=== PATIENT | female | born 1930 | race Caucasian/White ===

== ENCOUNTER 2017-08-02 13:00 | Inpatient (IN) | payer MEDICARE, BC ==
--- NOTE | 2017-08-02 13:28 | EDM.PDOC ---
ED HPI GENERAL MEDICAL PROBLEM - General Stated Complaint: POSSIBLE STROKE Time Seen by Provider: 08/02/17 13:01 Source of Information: Reports: Patient, Family History Limitations: Reports: No Limitations - History of Present Illness INITIAL COMMENTS - FREE TEXT/NARRATIVE: 87 y.o.w.f with H/O A fib, HTN, came to the ed with her family, walking. Pt lives by herself. She called her daughter at about noon, something is not " right with her left face". On arrival her blood pressure was 230/103. Pt stated she has no pain. Her left face was drooping, her MS was 5/5 throughout and she was able to elevate all her extremities for 10 sec. EOMI. Was not able to whistle. Pt was Ox4 BP 230/84 Pulse 51 Temp 98.0 RR 20, O2 sat 97% Onset: Today Onset Date: 08/02/17 Onset Time: 10:00 Duration: Hour(s): Location: Reports: Face (left face) Severity: Moderate Improves with: Reports: None Worsens with: Reports: None Context: Reports: Other (HTN) Associated Symptoms: Reports: Headaches - Related Data Allergies Allergy/AdvReac Type Severity Reaction Status Date / Time Sulfa (Sulfonamide Allergy Nausea and Verified 08/02/17 14:30 Antibiotics) Vomiting Home Meds: Home Meds Digoxin [Lanoxin] 125 mcg PO DAILY 08/02/17 [History] Enalapril [Vasotec] 20 mg PO DAILY 08/02/17 [History] Furosemide [Lasix] 80 mg PO DAILY 08/02/17 [History] Metoprolol Succinate 50 mg PO DAILY 08/02/17 [History] Valsartan 160 mg PO DAILY 08/02/17 [History] Warfarin [Coumadin] 3 mg PO DAILY 08/02/17 [History] metFORMIN [Glucophage] 250 mg PO WITHBREAKFAST 08/02/17 [History] Calcium Carbonate [Calcium] 600 mg PO DAILY 08/03/17 [History] Multivitamin [Daily Cory] 1 tab PO DAILY 08/03/17 [History] Potassium Chloride [Klor-Con 8] 16 meq PO BID 08/03/17 [History] Social & Family History - Tobacco Use Second Hand Smoke Exposure: Yes - Alcohol Use Days Per Week of Alcohol Use: 0 - Recreational Drug Use Recreational Drug Use: No ED ROS GENERAL - Review of Systems Review Of Systems: See Below Constitutional: Reports: No Symptoms HEENT: Reports: No Symptoms, Other (left facial droop) Respiratory: Reports: No Symptoms Cardiovascular: Reports: No Symptoms Endocrine: Reports: No Symptoms GI/Abdominal: Reports: No Symptoms : Reports: No Symptoms Musculoskeletal: Reports: No Symptoms Skin: Reports: No Symptoms Neurological: Reports: Numbness (with droop of left face) Psychiatric: Reports: No Symptoms Hematologic/Lymphatic: Reports: No Symptoms Immunologic: Reports: No Symptoms ED EXAM, NEURO - Physical Exam Exam: See Below Exam Limited By: No Limitations General Appearance: Alert, WD/WN, No Apparent Distress Eye Exam: Left Eye: Proptosis (left facial droop) Ears: Normal External Exam Nose: Normal Inspection Throat/Mouth: Normal Lips, No Airway Compromise Head Exam: Atraumatic, Other (left facial droop) Neck: Normal Inspection, Supple, Non-Tender, Full Range of Motion Respiratory/Chest: No Respiratory Distress, Lungs Clear, Normal Breath Sounds Cardiovascular: No Edema, No JVD, No Murmur, No Rub, Bradycardia, Irregularly Irregular GI/Abdominal: Normal Bowel Sounds, Soft, Non-Tender, No Organomegaly, No Distention, No Abnormal Bruit, No Mass (Female) Exam: Deferred Rectal (Female) Exam: Deferred Neurological: Alert, Normal Mood/Affect, Normal Dorsiflexion, Normal Plantar Flexion, Normal Gait, Oriented x 3, Other (left facial droop) Back Exam: Normal Inspection, Full Range of Motion Extremities: Normal Inspection, Normal Range of Motion, Non-Tender, No Pedal Edema Psychiatric: Normal Affect, Normal Mood Skin Exam: Warm, Dry, Intact, Normal Color, No Rash EKG INTERPRETATION EKG Date: 08/02/17 Time: 13:15 Rhythm: A-Fib Rate (Beats/Min): 46 [place]: LAD-Left [place] Deviation P-Wave: Absent QRS: Normal ST-T: Normal QT: Normal Comparison: NA - No Prior EKG Course - Vital Signs Text/Narrative:: 87 y.o.w.f with H/O A fib, HTN, came to the ed with her family, walking. Pt lives by herself. She called her daughter at about noon, something is not " right with her left face". On arrival her blood pressure was 230/103. Pt stated she has no pain. Her left face was drooping, her MS was 5/5 throughout and she was able to elevate all her extremities for 10 sec. EOMI. Was not able to whistle. Pt was Ox4 BP 230/84 Pulse 51 Temp 98.0 RR 20, O2 sat 97% PE: Left facial droop. Ox3 HTN urgency Labs: UA pos for UTI CBC nl Cr. 1.0 BUN 34 GFR 58 Imaging: CT head: NAD MRI was ordered by Dr. Griffith, admitting Physician Impression: left sided Molina's palsy, HTN urgency, UTI, A Fib with SVR DDX: CVA Tx: Hydralazine, Levoquine 500 mg I.V 2.24 pm Consultation: Dr. Griffith, [facility]: Will see pt in the ed and oder HTN meds and took over the care. Plan: Admit to ICU. Dr. Huddleston wrote the admitting orders. Last Recorded V/S: Last Vital Signs Temp 36.4 C 08/06/17 03:05 Pulse 48 L 08/06/17 03:05 Resp 18 08/06/17 03:05 BP 156/79 H 08/06/17 03:05 Pulse Ox 95 08/06/17 03:05 - Orders/Labs/Meds Orders: Medication Orders Acetaminophen (Tylenol) 650 mg PO Q4H PRN PRN Reason: Pain (Mild 1-3)/fever Amlodipine Besylate (Norvasc) 10 mg PO DAILY CHARLIE Last Admin: 08/05/17 09:20 Dose: 10 mg Admin: 08/04/17 10:21 Dose: 10 mg Admin: 08/03/17 08:53 Dose: 10 mg Artificial Tears (Refresh Tears 0.5%) 0 ml EYELF Q1H PRN PRN Reason: LID LAG Last Admin: 08/05/17 20:20 Dose: 1 drop Admin: 08/05/17 09:21 Dose: 1 drop Admin: 08/04/17 17:10 Dose: 1 drop Admin: 08/04/17 15:30 Dose: 1 drop Admin: 08/04/17 13:30 Dose: 1 drop Admin: 08/04/17 10:27 Dose: 1 drop Admin: 08/04/17 03:30 Dose: 1 drop Admin: 08/04/17 01:05 Dose: 1 drop Admin: 08/03/17 22:00 Dose: 1 drop Admin: 08/03/17 17:41 Dose: 1 drop Admin: 08/03/17 15:06 Dose: 1 drop Admin: 08/03/17 09:50 Dose: 1 drop Docusate Sodium (Colace) 100 mg PO BID PRN PRN Reason: Constipation Last Admin: 08/03/17 14:32 Dose: 100 mg Furosemide (Lasix) 80 mg PO DAILY [facility] Last Admin: 08/05/17 09:19 Dose: 80 mg Admin: 08/04/17 10:21 Dose: 80 mg Admin: 08/03/17 08:27 Dose: 80 mg Metformin HCl (Glucophage) 250 mg PO WITHBREAKFAST [facility] Last Admin: 08/05/17 09:18 Dose: 250 mg Admin: 08/04/17 08:26 Dose: 250 mg Admin: 08/03/17 08:27 Dose: 250 mg Metoprolol Tartrate (Lopressor) 50 mg PO BID [facility] Last Admin: 08/05/17 20:23 Dose: 50 mg Polyethylene Glycol (Miralax) 17 gm PO DAILY [facility] Last Admin: 08/05/17 09:19 Dose: 17 gm Admin: 08/04/17 10:30 Dose: 17 gm Admin: 08/03/17 21:00 Dose: 17 gm Potassium Chloride (Klor-Con 8) 16 meq PO BID [facility] Last Admin: 08/05/17 20:20 Dose: 16 meq Admin: 08/05/17 09:19 Dose: 16 meq Admin: 08/04/17 21:01 Dose: 16 meq Admin: 08/04/17 10:20 Dose: 16 meq Admin: 08/03/17 21:00 Dose: 16 meq Prednisone (Prednisone) 60 mg PO WITHBREAKFAST [facility] Last Admin: 08/05/17 09:18 Dose: 60 mg Admin: 08/04/17 08:27 Dose: 60 mg Admin: 08/03/17 08:51 Dose: 60 mg Admin: 08/02/17 18:44 Dose: 60 mg Sodium Chloride (Saline Flush) 10 ml FLUSH ASDIRECTED PRN PRN Reason: Keep Vein Open Last Admin: 08/03/17 13:03 Dose: 10 ml Admin: 08/03/17 09:50 Dose: 10 ml Valacyclovir HCl (Valtrex) 1,000 mg PO BID [facility] Stop: 08/09/17 09:01 Last Admin: 08/05/17 20:20 Dose: 1,000 mg Admin: 08/05/17 09:20 Dose: 1,000 mg Admin: 08/04/17 21:01 Dose: 1,000 mg Admin: 08/04/17 10:21 Dose: 1,000 mg Admin: 08/03/17 21:00 Dose: 1,000 mg Admin: 08/03/17 08:53 Dose: 1,000 mg Valsartan (Diovan) 160 mg PO DAILY [facility] Last Admin: 08/05/17 09:19 Dose: 160 mg Admin: 08/04/17 10:20 Dose: 160 mg Admin: 08/03/17 08:52 Dose: 160 mg Warfarin Sodium (Coumadin) 3 mg PO 1600 [facility] Last Admin: 08/03/17 17:23 Dose: 3 mg Admin: 08/02/17 17:04 Dose: 3 mg Warfarin Sodium (Coumadin Sliding Scale) 1 each PO ASDIRECTED [facility] Labs: Laboratory Tests 08/02/17 08/02/17 08/02/17 Range/Units 13:25 13:25 13:25 WBC 6.7 (4.5-12.0) X10-3/uL RBC 4.85 (3.23-5.20) x10(6)uL Hgb 14.9 (11.5-15.5) g/dL Hct 45.1 (30.0-51.3) % MCV 93.0 (80-96) fL MCH 30.8 (27.7-33.6) pg MCHC 33.1 (32.2-35.4) g/dL RDW 14.4 (11.5-15.5) % Plt Count 234 (125-369) X10(3)uL MPV 8.9 (7.4-10.4) fL Add Manual Diff Yes Neutrophils % (Manual) 78 (46-82) % Lymphocytes % (Manual) 16 (13-37) % Monocytes % (Manual) 5 (4-12) % Eosinophils % (Manual) 1 (0-5) % PT 23.8 H (8.7-11.1) INR 2.32 H (0.89-1.13) Sodium 144 (135-145) mmol/L Potassium 3.8 (3.5-5.3) mmol/L Chloride 105 (100-110) mmol/L Carbon Dioxide 31 (21-32) mmol/L BUN 24 H (7-18) mg/dL Creatinine 1.0 (0.55-1.02) mg/dL Est Cr Clr Drug Dosing TNP Estimated GFR (MDRD) 53 L (>60) BUN/Creatinine Ratio 24.0 H (9-20) Glucose 180 H (80-116) mg/dL Calcium 9.1 (8.6-10.2) mg/dL Creatine Kinase (60-160) IU/L Troponin I (<0.017-0.056) ng/mL Urine Color (YELLOW) Urine Appearance (CLEAR) Urine pH (5.0-6.5) Ur Specific [place] (1.010-1.025) Urine Protein (NEGATIVE) mg/dL Urine Glucose (UA) (NEGATIVE) mg/dL Urine Ketones (NEGATIVE) mg/dL Urine Occult Blood (NEGATIVE) Urine Nitrite (NEGATIVE) Urine Bilirubin (NEGATIVE) Urine Urobilinogen (NEGATIVE) mg/dL Ur Leukocyte Esterase (NEGATIVE) Urine RBC (0) Urine WBC (0) Ur Squamous Epith Cells (NS,R,O) Urine Bacteria (NS) Digoxin (0.8-2.0) ng/mL 08/02/17 08/02/17 08/02/17 Range/Units 13:25 13:25 13:25 WBC (4.5-12.0) X10-3/uL RBC (3.23-5.20) x10(6)uL Hgb (11.5-15.5) g/dL Hct (30.0-51.3) % MCV (80-96) fL MCH (27.7-33.6) pg MCHC (32.2-35.4) g/dL RDW (11.5-15.5) % Plt Count (125-369) X10(3)uL MPV (7.4-10.4) fL Add Manual Diff Neutrophils % (Manual) (46-82) % Lymphocytes % (Manual) (13-37) % Monocytes % (Manual) (4-12) % Eosinophils % (Manual) (0-5) % PT (8.7-11.1) INR (0.89-1.13) Sodium (135-145) mmol/L Potassium (3.5-5.3) mmol/L Chloride (100-110) mmol/L Carbon Dioxide (21-32) mmol/L BUN (7-18) mg/dL Creatinine (0.55-1.02) mg/dL Est Cr Clr Drug Dosing Estimated GFR (MDRD) (>60) BUN/Creatinine Ratio (9-20) Glucose (80-116) mg/dL Calcium (8.6-10.2) mg/dL Creatine Kinase 42 L (60-160) IU/L Troponin I < 0.017 L (<0.017-0.056) ng/mL Urine Color (YELLOW) Urine Appearance (CLEAR) Urine pH (5.0-6.5) Ur Specific [place] (1.010-1.025) Urine Protein (NEGATIVE) mg/dL Urine Glucose (UA) (NEGATIVE) mg/dL Urine Ketones (NEGATIVE) mg/dL Urine Occult Blood (NEGATIVE) Urine Nitrite (NEGATIVE) Urine Bilirubin (NEGATIVE) Urine Urobilinogen (NEGATIVE) mg/dL Ur Leukocyte Esterase (NEGATIVE) Urine RBC (0) Urine WBC (0) Ur Squamous Epith Cells (NS,R,O) Urine Bacteria (NS) Digoxin 1.4 (0.8-2.0) ng/mL 08/02/17 Range/Units 14:05 WBC (4.5-12.0) X10-3/uL RBC (3.23-5.20) x10(6)uL Hgb (11.5-15.5) g/dL Hct (30.0-51.3) % MCV (80-96) fL MCH (27.7-33.6) pg MCHC (32.2-35.4) g/dL RDW (11.5-15.5) % Plt Count (125-369) X10(3)uL MPV (7.4-10.4) fL Add Manual Diff Neutrophils % (Manual) (46-82) % Lymphocytes % (Manual) (13-37) % Monocytes % (Manual) (4-12) % Eosinophils % (Manual) (0-5) % PT (8.7-11.1) INR (0.89-1.13) Sodium (135-145) mmol/L Potassium (3.5-5.3) mmol/L Chloride (100-110) mmol/L Carbon Dioxide (21-32) mmol/L BUN (7-18) mg/dL Creatinine (0.55-1.02) mg/dL Est Cr Clr Drug Dosing Estimated GFR (MDRD) (>60) BUN/Creatinine Ratio (9-20) Glucose (80-116) mg/dL Calcium (8.6-10.2) mg/dL Creatine Kinase (60-160) IU/L Troponin I (<0.017-0.056) ng/mL Urine Color Yellow (YELLOW) Urine Appearance Cloudy (CLEAR) Urine pH 7.0 H (5.0-6.5) Ur Specific [place] 1.010 (1.010-1.025) Urine Protein 30 H (NEGATIVE) mg/dL Urine Glucose (UA) Normal (NEGATIVE) mg/dL Urine Ketones Negative (NEGATIVE) mg/dL Urine Occult Blood Large H (NEGATIVE) Urine Nitrite Positive H (NEGATIVE) Urine Bilirubin Negative (NEGATIVE) Urine Urobilinogen Normal (NEGATIVE) mg/dL Ur Leukocyte Esterase Negative (NEGATIVE) Urine RBC 20-30 H (0) Urine WBC 5-10 (0) Ur Squamous Epith Cells Moderate H (NS,R,O) Urine Bacteria Many H (NS) Digoxin (0.8-2.0) ng/mL Meds: Medications Generic Name Dose Route Start Last Admin Trade Name Freq PRN Reason Stop Dose Admin Acetaminophen 650 mg 08/02/17 14:54 Tylenol PO Q4H PRN Pain (Mild 1-3)/fever Amlodipine Besylate 10 mg 08/03/17 09:00 08/05/17 09:20 Norvasc PO 10 mg DAILY CHARLIE Administration Artificial Tears 0 ml 08/03/17 08:47 08/05/17 20:20 Refresh Tears 0.5% EYELF 1 drop Q1H PRN Administration LID LAG Docusate Sodium 100 mg 08/02/17 14:54 08/03/17 14:32 Colace PO 100 mg BID PRN Administration Constipation Furosemide 80 mg 08/03/17 09:00 08/05/17 09:19 Lasix PO 80 mg DAILY CHARLIE Administration Metformin HCl 250 mg 08/03/17 08:00 08/05/17 09:18 Glucophage PO 250 mg WITHBREAKFAST CHARLIE Administration Metoprolol Tartrate 50 mg 08/05/17 21:00 08/05/17 20:23 Lopressor PO 50 mg BID CHARLIE Administration Polyethylene Glycol 17 gm 08/03/17 19:30 08/05/17 09:19 Miralax PO 17 gm DAILY CHARLIE Administration Potassium Chloride 16 meq 08/03/17 21:00 08/05/17 20:20 Klor-Con 8 PO 16 meq BID CHARLIE Administration Prednisone 60 mg 08/02/17 17:45 08/05/17 09:18 Prednisone PO 60 mg WITHBREAKFAST CHARLIE Administration Sodium Chloride 10 ml 08/02/17 14:54 08/03/17 13:03 Saline Flush FLUSH 10 ml ASDIRECTED PRN Administration Keep Vein Open Valacyclovir HCl 1,000 mg 08/03/17 09:00 08/05/17 20:20 Valtrex PO 08/09/17 09:01 1,000 mg BID CHARLIE Administration Valsartan 160 mg 08/03/17 09:00 08/05/17 09:19 Diovan PO 160 mg DAILY CHARLIE Administration Warfarin Sodium 3 mg 08/02/17 17:00 08/03/17 17:23 Coumadin PO 3 mg 1600 CHARLIE Administration Warfarin Sodium 1 each 08/02/17 16:45 Coumadin Sliding Scale PO ASDIRECTED CHARLIE Discontinued Medications Generic Name Dose Route Start Last Admin Trade Name Freq PRN Reason Stop Dose Admin Artificial Tears 1 each 08/02/17 17:28 08/02/17 21:07 Refresh Plus 0.5% EYELF 1 drop ASDIRECTED PRN Administration lid lag Digoxin 125 mcg 08/03/17 09:00 Lanoxin PO DAILY [facility] Digoxin 62.5 mcg 08/03/17 09:00 Lanoxin PO DAILY [facility] Enalapril Maleate 20 mg 08/03/17 09:00 Vasotec PO DAILY [facility] Gadoteridol 20 ml 08/02/17 15:30 08/02/17 16:00 Prohance IV 15 ml . DIRECTED CHARLIE Administration Hydralazine HCl 5 mg 08/02/17 13:36 08/02/17 13:50 Apresoline IVPUSH 08/02/17 13:37 5 mg ONETIME STA Administration Hydralazine HCl 10 mg 08/02/17 14:36 08/02/17 16:09 Apresoline IVPUSH 08/02/17 14:37 Not Given ONETIME ONE Nitroglycerin/Dextrose Confirm 08/02/17 14:28 08/02/17 14:45 Nitroglycerin 25 Mg/D5w 250 Ml Administered 08/02/17 14:29 Not Given Dose 25 mg in 250 mls @ as directed .ROUTE .STK-MED ONE Nitroglycerin/Dextrose 25 mg in 250 mls @ 3 mls/hr 08/02/17 16:30 08/03/17 08 :22 Nitroglycerin 25 Mg/D5w 250 Ml IV 0 mcg/min TITRATE CHARLIE 0 mls/hr Protocol Titration 5 MCG/MIN Sodium Chloride 1,000 mls @ 0 mls/hr 08/02/17 17:00 08/02/17 16:53 Normal Saline IV 08/06/17 16:57 30 mls/hr ASDIRECTED CHARLIE Administration KVO Labetalol HCl 20 mg 08/03/17 08:30 08/04/17 11:28 Normodyne IVPUSH Not Given Q4H [facility] Protocol Metoprolol Succinate 25 mg 08/03/17 09:00 Toprol Xl PO DAILY CHARLIE Metoprolol Tartrate 100 mg 08/04/17 08:45 08/04/17 21:01 Lopressor PO 100 mg Q12H CHARLIE Administration Metoprolol Tartrate 50 mg 08/05/17 09:44 08/05/17 10:04 Lopressor PO 08/05/17 09:45 50 mg ONETIME ONE Administration Prednisone 40 mg 08/02/17 17:45 Prednisone PO WITHBREAKFAST [facility] Valacyclovir HCl 1,000 mg 08/02/17 21:00 08/02/17 21:00 Valtrex PO 08/09/17 21:01 1,000 mg TID CHARLIE Administration Departure - Departure Time of Disposition: 09:00 Disposition: Admitted As Inpatient 67 Condition: Fair Clinical Impression: Molina's palsy, Hypertensive urgency - Discharge Information
[2017-08-02] MEDS: hydrALAZINE 20 MG/ML SDV IVPUSH STA ×2 (13:48→13:50)
[2017-08-02] MEDS ORDERED: Nitroglycerin/D5W 25 MG/250 ML BOTTLE ONE (14:28)
[2017-08-02] MEDS ORDERED: hydrALAZINE 20 MG/ML SDV IVPUSH ONE (14:36)
[2017-08-02] MEDS ORDERED: Docusate Sodium 100 MG Cap PO PRN (14:54)
[2017-08-02] MEDS ORDERED: Acetaminophen 325 MG Tab PO PRN (14:54)
[2017-08-02] MEDS ORDERED: Gadoteridol 279.3 MG/ML 20 ML SDV IV SCH (15:30)
[2017-08-02] MEDS ORDERED: Nitroglycerin/D5W 25 MG/250 ML BOTTLE IV SCH (16:30)
--- NOTE | 2017-08-02 16:41 | PCM.HP ---
H&P History of Present Illness - General Date of Service: 08/02/17 Admit Problem/Dx: Admission Diagnosis/Problem Admission Diagnosis/Problem Hypertensive emergency Source of Information: Patient, Family, Old Records, Provider History Limitations: Reports: No Limitations - History of Present Illness Initial Comments - Free Text/Narative: Patient is an 87-year-old female who was in her usual state of fairly good health when she woke up last night in the middle the night feeling like her left eye was full of sand. Her face felt funny. She got up to go to the bathroom and then went back to bed. About 11 AM this morning she called her daughter saying that her face felt funny and her eye didn't seem to want to work normally. They brought into the emergency department about 2:00 in the afternoon and she had a significant left facial droop and her left eye would not close completely. She didn't have any headache but when she was brought into the emergency department her systolic blood pressure was in the 230s to 240s with a diastolic pressure ranging from 70-90. She was given 2 doses of IV hydralazine in the emergency department which brought her blood pressure down to the 160s to 180s. She had a head CT done which was negative for bleeding. I was asked to see the patient and admit her for hypertensive emergency. She had no evidence of weakness in the upper or lower extremities and family did not notice any weakness in her arms or legs. She was able to walk like her normal self and didn't have any balance problems. Past medical history: #1 congestive heart failure with last echocardiogram in 2012 showing normal ejection fraction of 55%, unable to assess diastolic function. #2 atrial fibrillation on warfarin, digoxin and metoprolol for rate control. #3 diabetes mellitus type 2 #4 actinic keratosis #5 osteoarthritis #6 history of PE in the raw past. Social history: The patient lives in her own home. She is and has 5 children 4 of whom live in the area. She is a nonsmoker, nondrinker. Family history: Noncontributory - Related Data Allergies/Adverse Reactions: Allergies Allergy/AdvReac Type Severity Reaction Status Date / Time Sulfa (Sulfonamide Allergy Nausea and Verified 08/02/17 14:30 Antibiotics) Vomiting Home Medications: Home Meds Digoxin [Lanoxin] 125 mcg PO DAILY 08/02/17 [History] Enalapril [Vasotec] 20 mg PO DAILY 08/02/17 [History] Furosemide [Lasix] 80 mg PO DAILY 08/02/17 [History] Metoprolol Succinate 50 mg PO DAILY 08/02/17 [History] Valsartan 160 mg PO DAILY 08/02/17 [History] Warfarin [Coumadin] 3 mg PO DAILY 08/02/17 [History] metFORMIN [Glucophage] 250 mg PO WITHBREAKFAST 08/02/17 [History] Past Medical History HEENT History: Reports: Hard of Hearing, Impaired Vision, Other (See Below) Other HEENT History: Wears glasses and hearing aides. Cardiovascular History: Reports: Heart Failure, Hypertension Endocrine/Metabolic History: Reports: Diabetes, Type II - Past Surgical History Musculoskeletal Surgical History: Reports: Other (See Below) Other Musculoskeletal Surgeries/Procedures:: States history of knee surgery. Social & Family History - Tobacco Use Smoking Status *Q: Never Smoker Second Hand Smoke Exposure: Yes - Alcohol Use Days Per Week of Alcohol Use: 0 - Recreational Drug Use Recreational Drug Use: No H&P Review of Systems - Review of Systems: Review Of Systems: ROS reveals no pertinent complaints other than HPI. Exam - Exam Exam: See Below - Vital Signs Vital Signs: Last Vital Signs Temp 36.6 C 08/02/17 13:00 Pulse 48 L 08/02/17 14:45 Resp 20 08/02/17 14:45 BP 160/140 H 08/02/17 14:45 Pulse Ox 97 08/02/17 14:45 Weight: 72.575 kg - Exam General: Alert, Oriented, Cooperative HEENT: PERRLA, Mucosa Moist & [place], Pupils Equal, Pupils Reactive, TMs Clear, Other (Left conjunctiva slightly injected. She's unable to close her eyes completely on the left of the right closes completely. Left mouth droop. Tongue is midline however, she has normal movement.) Neck: Supple, Trachea Midline (Tenderness over the carotids bilaterally with complaints of neck pain, more discomfort on the left than the right.) Lungs: Clear to Auscultation, Normal Respiratory Effort Cardiovascular: Regular Rate, Normal S1, Normal S2, Irregular Rhythm GI/Abdominal Exam: Normal Bowel Sounds, Soft, Non-Tender, No Distention Extremities: No Pedal Edema, Other (Upper and lower extremities have strength 4 out of 5 and are symmetric. Normal grasp. Symmetrical finger to nose. The patient was not stood for further examination.) Psychiatric: Alert, Normal Affect, Normal Mood - Patient Data Result Diagrams: 08/02/17 13:25 08/02/17 13:25 EKG INTERPRETATION EKG Date: 08/02/17 EKG Interpretation Comments: Atrial fibrillation with rate of 46. No ST elevation or depression no T-wave inversion. U waves in 2, 3 and aVF as well as V3 and V4. V5 almost looks like a premature atrial contraction without a QRS following but it's difficult to tell because there is baseline wander. *Q Meaningful Use (ADM) - VTE *Q VTE Criteria *Q: VTE Anticoagulation Contraindications: Med/TX Not Indicated/Need - Stroke *Q Stroke Criteria *Q: - AMI *Q AMI Criteria *Q: - Problem List (1) Facial droop SNOMED Code(s): 99529628 ICD Code: R29.810 - FACIAL WEAKNESS Status: Acute Current Visit: Yes Problem Details: Onset about 2 AM or so. I suspect this is acute stroke but cannot say whether or not it is a result of the patient's current hypertensive emergency. The elevated blood pressure may be a result of her stroke rather than the cause. MRA/MRI of head and neck is currently pending. Given her neck pain I wanted to rule out carotid dissection as a possible etiology for her facial symptoms and rule in CVA. Typically I would like to allow permissive hypertension in a patient who's had a stroke, but given this patient's full anticoagulation and the possibility that her symptoms are related to her hypertension, I'm going to attempt a gradual reduction in her blood pressure to 180 systolic. We're going to start a nitro drip and titrate gradually. Discussed with the patient and the family the risks versus benefits and at this point I think the most prudent course would be to do gradual lowering of blood pressure. ADDENDUM: MRA/MRI was negative for stroke or dissection. Will lower blood pressure to goal of 160 systolic and this may be a neurologic manifestation of her severe hypertension or Molina's palsy. Will start steroid and antiviral therapy but may be stopped if sxs resolve with blood pressure control. It would be a very strange coincidence that these two problems (severe HTN and facial droop) are unrelated. (2) Hypertensive emergency SNOMED Code(s): 019837043384695 ICD Code: I16.1 - HYPERTENSIVE EMERGENCY Status: Acute Current Visit: Yes Problem Details: Systolic blood pressures in the high as 240s. I'd like to bring that gently down to a target of about 180 on nitro drip. We'll titrate very cautiously. ADDENDUM: Patient's MRA/MRI came back normal, will continue to titrate SBP but now to a target of 160. (3) DM2 (diabetes mellitus, type 2) SNOMED Code(s): 39702073 ICD Code: E11.9 - TYPE 2 DIABETES MELLITUS WITHOUT COMPLICATIONS Status: Acute Current Visit: Yes Problem Details: On metformin, continue. (4) Chronic anticoagulation SNOMED Code(s): 904358915 ICD Code: Z79.01 - TABLE TENDER SLUDGE (CURRENT) USE OF ANTICOAGULANTS Status: Acute Current Visit: Yes Problem Details: Continue anticoagulation, per pharmacy. (5) Afib, Atrial fibrillation SNOMED Code(s): 95072466 ICD Code: I48.91 - UNSPECIFIED ATRIAL FIBRILLATION Status: Acute Priority : Medium Current Visit: No Problem Details: [place] rate controlled on digoxin and metoprolol. Rate in the 40s here. Will decrease both tomorrow and preferentially increase metoprolol if needed. (6) CHF, Congestive heart failure SNOMED Code(s): 80654276 ICD Code: I50.9 - HEART FAILURE, UNSPECIFIED Status: Acute Priority: High Current Visit: No Problem Details: Echo in 2013 shows no systolic dysfunction, unable to see diastolic dysfunction. Continue Lasix at home dose. (7) Dysphagia SNOMED Code(s): 90619696 ICD Code: R13.10 - DYSPHAGIA, UNSPECIFIED Status: Acute Current Visit: Yes Problem Details: Unclear etiology at this time of facial droop and dysphagia. Speech pathology was here to see another patient and did a bedside swallow evaluation. Recommended mechanical soft diet with toast and nectar thickened liquids, and see where she is in a week or so before pursuing further evaluation. Qualifiers: Dysphagia type: oral phase Qualified Code(s): R13.11 - Dysphagia, oral phase (8) DVT prophylaxis SNOMED Code(s): 696149606 ICD Code: [id number] - Status: Acute Current Visit: Yes Problem Details: Fully anticoagulated. No GI prophylaxis needed. (9) Lid lag SNOMED Code(s): 51815826 ICD Code: H02.539 - EYELID RETRACTION UNSPECIFIED EYE, UNSPECIFIED LID Status: Acute Current Visit: Yes Problem Details: Artificial tears every 1- 2 hours while awake, tape eye closed at night to sleep for protection. Will cover with 7 days 60 mg prednisone daily and valacyclovir TID for Molina's Palsy for now. Problem List Initiated/Reviewed/Updated: Yes Orders Last 24hrs: Active Orders 24 hr Category Date Time Status Consult to Pharmacy [CONS] Routine Cons 08/02/17 16:28 Ordered Ang Neck w wo Cont [MR] Stat Exams 08/02/17 15:13 Taken Digoxin [Lanoxin] Med 08/03/17 09:00 Ordered 125 mcg PO DAILY Enalapril [Vasotec] Med 08/03/17 09:00 Ordered 20 mg PO DAILY Furosemide [Lasix] Med 08/03/17 09:00 Ordered 80 mg PO DAILY Metoprolol Succinate [Toprol XL] Med 08/03/17 09:00 Ordered 25 mg PO DAILY Nitroglycerin/D5W [Nitroglycerin 25 MG/D5W 250 ML] Med 08/02/17 16:30 Ordered 25 mg in 250 ml IV TITRATE Valsartan [Diovan] Med 08/03/17 09:00 Ordered 160 mg PO DAILY Warfarin [Coumadin] Med 08/03/17 09:00 Ordered 3 mg PO DAILY metFORMIN [Glucophage] Med 08/03/17 08:00 Ordered 250 mg PO WITHBREAKFAST Medication Orders Acetaminophen (Tylenol) 650 mg PO Q4H PRN PRN Reason: Pain (Mild 1-3)/fever Digoxin (Lanoxin) 125 mcg PO DAILY CHARLIE Docusate Sodium (Colace) 100 mg PO BID PRN PRN Reason: Constipation Furosemide (Lasix) 80 mg PO DAILY CHARLIE Nitroglycerin/Dextrose (Nitroglycerin 25 Mg/D5w 250 Ml) 25 mg in 250 mls @ 3 mls/hr IV TITRATE CHARLIE; 5 MCG/MIN PRN Reason: Protocol Metformin HCl (Glucophage) 250 mg PO WITHBREAKFAST CHARLIE Metoprolol Succinate (Toprol Xl) 25 mg PO DAILY CHARLIE Non-Formulary Medication (Enalapril [Vasotec]) 20 mg PO DAILY CHARLIE Sodium Chloride (Saline Flush) 10 ml FLUSH ASDIRECTED PRN PRN Reason: Keep Vein Open Valsartan (Diovan) 160 mg PO DAILY CHARLIE Warfarin Sodium (Coumadin) 3 mg PO DAILY CHARLIE Assessment/Plan Comment:: CODE STATUS discussed with patient in the presence of her family. If she were to get so sick that her heart were to stop beating or she were to stop breathing , "if it's my time let me go." Thus patient will be DNR/DNI.
[2017-08-02] MEDS ORDERED: Warfarin Sliding Scale PO SCH (16:45)
[2017-08-02] MEDS ORDERED: Sodium Chloride 0.9% 1,000 ML IV SCH (17:00)
[2017-08-02] MEDS: Warfarin 3 MG Tab PO SCH (17:04)
[2017-08-02] MEDS ORDERED: Carboxymethylcellulose Sodium 0.5% Ophth Soln 0.4 ML UD Box of 30 EYELF PRN (17:28)
[2017-08-02] MEDS ORDERED: predniSONE 20 MG Tab PO SCH (17:45)
[2017-08-02] MEDS: predniSONE 20 MG Tab PO SCH (18:44)
[2017-08-02] MEDS ORDERED: valACYclovir 1,000 MG Tab PO SCH (21:00)
[2017-08-03] MEDS: Furosemide 80 MG Tab PO SCH (08:27)
[2017-08-03] MEDS: metFORMIN 500 MG Tab PO SCH (08:27)
[2017-08-03] MEDS: predniSONE 20 MG Tab PO SCH (08:51)
[2017-08-03] MEDS: Labetalol 20 MG/4 ML Syringe IVPUSH SCH ×4 (08:52→20:54)
[2017-08-03] MEDS: Valsartan 160 MG Tab PO SCH (08:52)
[2017-08-03] MEDS: valACYclovir 1,000 MG Tab PO SCH ×2 (08:53→21:00)
[2017-08-03] MEDS: amLODIPine 10 MG Tab PO SCH (08:53)
[2017-08-03] MEDS ORDERED: Metoprolol Succinate 25 MG Tab.ER PO SCH (09:00)
[2017-08-03] MEDS ORDERED: Digoxin 125 MCG Tab PO SCH ×2 (09:00)
--- NOTE | 2017-08-03 09:29 | PCM.PN ---
- General Info Date of Service: 08/03/17 Subjective Update: Criselda is hard of hearing. Has a droopy left side but otherwise no headache or chest pain or shortness of breath. She's been on nitroglycerin 5 mics per hour drip. With minimal improvement of blood pressure. She has no lateralizing or focal deficits in the extremities. No visual disturbance or headache. Functional Status: Reports: Pain Controlled - Review of Systems HEENT: Reports: No Symptoms Pulmonary: Reports: No Symptoms Cardiovascular: Reports: No Symptoms Gastrointestinal: Reports: No Symptoms Genitourinary: Reports: No Symptoms - Patient Data Vitals - Most Recent: Last Vital Signs Temp 97.4 F 08/03/17 06:23 Pulse 52 L 08/02/17 19:15 Resp 16 08/03/17 06:23 BP 200/72 H 08/03/17 08:53 Pulse Ox 97 08/03/17 06:23 Weight - Most Recent: 71.696 kg I&O - Last 24 Hours: Intake & Output 08/02/17 08/03/17 08/03/17 22:59 06:59 14:59 Intake Total 222 376 Output Total 100 Balance 222 276 Lab Results Last 24 Hours: Laboratory Results - last 24 hr 08/03/17 08/03/17 08/03/17 Range/Units 06:00 06:00 06:00 WBC 7.0 (4.5-12.0) X10-3/uL RBC 4.98 (3.23-5.20) x10(6)uL Hgb 15.7 H (11.5-15.5) g/dL Hct 46.9 (30.0-51.3) % MCV 94.3 (80-96) fL MCH 31.5 (27.7-33.6) pg MCHC 33.4 (32.2-35.4) g/dL RDW 14.5 (11.5-15.5) % Plt Count 240 (125-369) X10(3)uL MPV 8.9 (7.4-10.4) fL Add Manual Diff Yes Neutrophils % (Manual) 93 H (46-82) % Lymphocytes % (Manual) 7 L (13-37) % Clumped Platelets Occasional PT 24.6 H (8.7-11.1) INR 2.40 H (0.89-1.13) Sodium 144 (135-145) mmol/L Potassium 3.7 (3.5-5.3) mmol/L Chloride 106 (100-110) mmol/L Carbon Dioxide 31 (21-32) mmol/L BUN 23 H (7-18) mg/dL Creatinine 1.0 (0.55-1.02) mg/dL Est Cr Clr Drug Dosing 31.94 mL/min Estimated GFR (MDRD) 53 L (>60) BUN/Creatinine Ratio 23.0 H (9-20) Glucose 189 H (80-116) mg/dL Calcium 9.5 (8.6-10.2) mg/dL Med Orders - Current: Current Medications Acetaminophen (Tylenol) 650 mg PO Q4H PRN PRN Reason: Pain (Mild 1-3)/fever Amlodipine Besylate (Norvasc) 10 mg PO DAILY ON LICENSE OF [facility] Last Admin: 08/03/17 08:53 Dose: 10 mg Artificial Tears (Refresh Tears 0.5%) 0 ml EYELF Q1H PRN PRN Reason: LID LAG Docusate Sodium (Colace) 100 mg PO BID PRN PRN Reason: Constipation Furosemide (Lasix) 80 mg PO DAILY ON LICENSE OF [facility] Last Admin: 08/03/17 08:27 Dose: 80 mg Labetalol HCl (Normodyne) 20 mg IVPUSH Q4H CHARLIE PRN Reason: Protocol Last Admin: 08/03/17 08:52 Dose: 20 mg Metformin HCl (Glucophage) 250 mg PO WITHBREAKFAST ON LICENSE OF [facility] Last Admin: 08/03/17 08:27 Dose: 250 mg Prednisone (Prednisone) 60 mg PO WITHBREAKFAST CHARLIE Last Admin: 08/03/17 08:51 Dose: 60 mg Sodium Chloride (Saline Flush) 10 ml FLUSH ASDIRECTED PRN PRN Reason: Keep Vein Open Valacyclovir HCl (Valtrex) 1,000 mg PO BID ON LICENSE OF [facility] Stop: 08/09/17 09:01 Last Admin: 08/03/17 08:53 Dose: 1,000 mg Valsartan (Diovan) 160 mg PO DAILY ON LICENSE OF [facility] Last Admin: 08/03/17 08:52 Dose: 160 mg Warfarin Sodium (Coumadin) 3 mg PO 1600 ON LICENSE OF [facility] Last Admin: 08/02/17 17:04 Dose: 3 mg Warfarin Sodium (Coumadin Sliding Scale) 1 each PO ASDIRECTED CHARLIE Discontinued Medications Artificial Tears (Refresh Plus 0.5%) 1 each EYELF ASDIRECTED PRN PRN Reason: lid lag Last Admin: 08/02/17 21:07 Dose: 1 drop Digoxin (Lanoxin) 125 mcg PO DAILY ON LICENSE OF [facility] Digoxin (Lanoxin) 62.5 mcg PO DAILY ON LICENSE OF [facility] Enalapril Maleate (Vasotec) 20 mg PO DAILY ON LICENSE OF [facility] Gadoteridol (Prohance) 20 ml IV . DIRECTED CHARLIE Last Admin: 08/02/17 16:00 Dose: 15 ml Hydralazine HCl (Apresoline) 5 mg IVPUSH ONETIME STA Stop: 08/02/17 13:37 Last Admin: 08/02/17 13:50 Dose: 5 mg Hydralazine HCl (Apresoline) 10 mg IVPUSH ONETIME ONE Stop: 08/02/17 14:37 Last Admin: 08/02/17 16:09 Dose: Not Given Nitroglycerin/Dextrose (Nitroglycerin 25 Mg/D5w 250 Ml) Confirm Administered Dose 25 mg in 250 mls @ as directed .ROUTE .STK-MED ONE Stop: 08/02/17 14:29 Last Admin: 08/02/17 14:45 Dose: Not Given Nitroglycerin/Dextrose (Nitroglycerin 25 Mg/D5w 250 Ml) 25 mg in 250 mls @ 3 mls/hr IV TITRATE CHARLIE; 5 MCG/MIN PRN Reason: Protocol Last Titration: 08/03/17 08:22 Dose: 0 mcg/min, 0 mls/hr Sodium Chloride (Normal Saline) 1,000 mls @ 0 mls/hr IV ASDIRECTED CHARLIE PRN Reason: KVO Stop: 08/06/17 16:57 Last Admin: 08/02/17 16:53 Dose: 30 mls/hr Metoprolol Succinate (Toprol Xl) 25 mg PO DAILY ON LICENSE OF [facility] Prednisone (Prednisone) 40 mg PO WITHBREAKFAST ON LICENSE OF [facility] Valacyclovir HCl (Valtrex) 1,000 mg PO TID ON LICENSE OF [facility] Stop: 08/09/17 21:01 Last Admin: 08/02/17 21:00 Dose: 1,000 mg - Problem List & Annotations (1) Hypertensive emergency SNOMED Code(s): 946790532844226 Code(s): I16.1 - HYPERTENSIVE EMERGENCY Status: Acute Current Visit: Yes Annotation/Comment:: Systolic blood pressures in the high as 240s. I'd like to bring that gently down to a target of about 180 on nitro drip. We'll titrate very cautiously. ADDENDUM: Patient's MRA/MRI came back normal, will continue to titrate SBP but now to a target of 160. 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 (5) Afib, Atrial fibrillation SNOMED Code(s): 41088126 Code(s): I48.91 - UNSPECIFIED ATRIAL FIBRILLATION Status: Acute Priority : Medium Current Visit: No (6) CKD (chronic kidney disease) SNOMED Code(s): 384874814 Code(s): N18.9 - CHRONIC KIDNEY DISEASE, UNSPECIFIED Status: Acute Current Visit: Yes - Problem List Review Problem List Initiated/Reviewed/Updated: Yes - My Orders Last 24 Hours: My Active Orders 08/03/17 08:30 Labetalol [Normodyne] 20 mg IVPUSH Q4H 08/03/17 09:00 amLODIPine [Norvasc] 10 mg PO DAILY valACYclovir [Valtrex] 1,000 mg PO BID 08/04/17 05:11 BASIC METABOLIC PANEL,BMP [CHEM] AM CBC WITH AUTO DIFF [HEME] AM - Plan Plan:: I will discontinue nitroglycerin, and Zestril because she is already on Diovan. I've elected to start labetalol IV 20 mg every 4 hours motility. Blood pressure still above 200. My goal is to decrease the blood pressure to less than 180 the next 24 hours. I will also discontinue the Lanoxin, and metoprolol. She is on anticoagulation and INR is within reference range today. She'll continue with prednisone and Valtrex the Valtrex will be reduced because of decreased creatinine clearance.
[2017-08-03] MEDS: Sodium Chloride 0.9% 10 ML Syringe FLUSH PRN ×2 (09:50→13:03)
[2017-08-03] MEDS: Carboxymethylcellulose Sodium 0.5% Ophth Soln 15 ML Bottle EYELF PRN ×4 (09:50→22:00)
[2017-08-03] MEDS: Warfarin 3 MG Tab PO SCH (17:23)
[2017-08-03] MEDS: Potassium Chloride 8 MEQ Tab.ER PO SCH (21:00)
[2017-08-03] MEDS: Polyethylene Glycol 3350 Powder 17 GM Packet PO SCH (21:00)
[2017-08-04] MEDS: Labetalol 20 MG/4 ML Syringe IVPUSH SCH ×3 (01:01→11:28)
[2017-08-04] MEDS: Carboxymethylcellulose Sodium 0.5% Ophth Soln 15 ML Bottle EYELF PRN ×6 (01:05→17:10)
[2017-08-04] MEDS: metFORMIN 500 MG Tab PO SCH (08:26)
[2017-08-04] MEDS: predniSONE 20 MG Tab PO SCH (08:27)
--- NOTE | 2017-08-04 08:52 | PCM.PN ---
- General Info Admission Dx/Problem (Free Text): Admission Diagnosis/Problem Admission Diagnosis/Problem Hypertensive emergency Subjective Update: Criselda is hard of hearing. Has a droopy left side but improved. Otherwise no headache or chest pain or shortness of breath. She's been on nitroglycerin 5 mics per hour drip. With minimal improvement of blood pressure. She has no lateralizing or focal deficits in the extremities. No visual disturbance or headache. Functional Status: Reports: Tolerating Diet, Ambulating - Review of Systems General: Reports: No Symptoms HEENT: Reports: No Symptoms Pulmonary: Reports: No Symptoms Cardiovascular: Reports: No Symptoms Gastrointestinal: Reports: No Symptoms Genitourinary: Reports: No Symptoms - Patient Data Vitals - Most Recent: Last Vital Signs Temp 97.8 F 08/04/17 04:00 Pulse 55 L 08/03/17 17:30 Resp 16 08/04/17 04:00 BP 153/88 H 08/04/17 04:00 Pulse Ox 96 08/04/17 04:00 Weight - Most Recent: 70.171 kg I&O - Last 24 Hours: Intake & Output 08/03/17 08/04/17 08/04/17 22:59 06:59 14:59 Intake Total 240 325 Output Total 250 Balance 240 75 Lab Results Last 24 Hours: Laboratory Results - last 24 hr 08/03/17 08/04/17 08/04/17 Range/Units 22:31 06:05 06:05 WBC 13.5 H (4.5-12.0) X10-3/uL RBC 4.72 (3.23-5.20) x10(6)uL Hgb 14.7 (11.5-15.5) g/dL Hct 43.7 (30.0-51.3) % MCV 92.7 (80-96) fL MCH 31.1 (27.7-33.6) pg MCHC 33.5 (32.2-35.4) g/dL RDW 14.5 (11.5-15.5) % Plt Count 250 (125-369) X10(3)uL MPV 8.9 (7.4-10.4) fL Add Manual Diff Yes Neutrophils % (Manual) 89 H (46-82) % Lymphocytes % (Manual) 6 L (13-37) % Monocytes % (Manual) 5 (4-12) % PT 34.6 H (8.7-11.1) INR 3.35 H (0.89-1.13) Sodium (135-145) mmol/L Potassium (3.5-5.3) mmol/L Chloride (100-110) mmol/L Carbon Dioxide (21-32) mmol/L BUN (7-18) mg/dL Creatinine (0.55-1.02) mg/dL Est Cr Clr Drug Dosing mL/min Estimated GFR (MDRD) (>60) BUN/Creatinine Ratio (9-20) Glucose (80-116) mg/dL POC Glucose 301 H (80-116) mg/dL Calcium (8.6-10.2) mg/dL 08/04/17 Range/Units 06:05 WBC (4.5-12.0) X10-3/uL RBC (3.23-5.20) x10(6)uL Hgb (11.5-15.5) g/dL Hct (30.0-51.3) % MCV (80-96) fL MCH (27.7-33.6) pg MCHC (32.2-35.4) g/dL RDW (11.5-15.5) % Plt Count (125-369) X10(3)uL MPV (7.4-10.4) fL Add Manual Diff Neutrophils % (Manual) (46-82) % Lymphocytes % (Manual) (13-37) % Monocytes % (Manual) (4-12) % PT (8.7-11.1) INR (0.89-1.13) Sodium 145 (135-145) mmol/L Potassium 3.4 L (3.5-5.3) mmol/L Chloride 106 (100-110) mmol/L Carbon Dioxide 29 (21-32) mmol/L BUN 32 H (7-18) mg/dL Creatinine 1.2 H (0.55-1.02) mg/dL Est Cr Clr Drug Dosing 26.62 mL/min Estimated GFR (MDRD) 43 L (>60) BUN/Creatinine Ratio 26.7 H (9-20) Glucose 145 H (80-116) mg/dL POC Glucose (80-116) mg/dL Calcium 9.4 (8.6-10.2) mg/dL Med Orders - Current: Current Medications Acetaminophen (Tylenol) 650 mg PO Q4H PRN PRN Reason: Pain (Mild 1-3)/fever Amlodipine Besylate (Norvasc) 10 mg PO DAILY [facility] Last Admin: 08/03/17 08:53 Dose: 10 mg Artificial Tears (Refresh Tears 0.5%) 0 ml EYELF Q1H PRN PRN Reason: LID LAG Last Admin: 08/04/17 03:30 Dose: 1 drop Docusate Sodium (Colace) 100 mg PO BID PRN PRN Reason: Constipation Last Admin: 08/03/17 14:32 Dose: 100 mg Furosemide (Lasix) 80 mg PO DAILY [facility] Last Admin: 08/03/17 08:27 Dose: 80 mg Metformin HCl (Glucophage) 250 mg PO WITHBREAKFAST [facility] Last Admin: 08/04/17 08:26 Dose: 250 mg Metoprolol Tartrate (Lopressor) 100 mg PO Q12H [facility] Polyethylene Glycol (Miralax) 17 gm PO DAILY [facility] Last Admin: 08/03/17 21:00 Dose: 17 gm Potassium Chloride (Klor-Con 8) 16 meq PO BID [facility] Last Admin: 08/03/17 21:00 Dose: 16 meq Prednisone (Prednisone) 60 mg PO WITHBREAKFAST [facility] Last Admin: 08/04/17 08:27 Dose: 60 mg Sodium Chloride (Saline Flush) 10 ml FLUSH ASDIRECTED PRN PRN Reason: Keep Vein Open Last Admin: 08/03/17 13:03 Dose: 10 ml Valacyclovir HCl (Valtrex) 1,000 mg PO BID [facility] Stop: 08/09/17 09:01 Last Admin: 08/03/17 21:00 Dose: 1,000 mg Valsartan (Diovan) 160 mg PO DAILY [facility] Last Admin: 08/03/17 08:52 Dose: 160 mg Warfarin Sodium (Coumadin) 3 mg PO 1600 [facility] Last Admin: 08/03/17 17:23 Dose: 3 mg Warfarin Sodium (Coumadin Sliding Scale) 1 each PO ASDIRECTED CHARLIE Discontinued Medications Artificial Tears (Refresh Plus 0.5%) 1 each EYELF ASDIRECTED PRN PRN Reason: lid lag Last Admin: 08/02/17 21:07 Dose: 1 drop Digoxin (Lanoxin) 125 mcg PO DAILY [facility] Digoxin (Lanoxin) 62.5 mcg PO DAILY [facility] Enalapril Maleate (Vasotec) 20 mg PO DAILY [facility] Gadoteridol (Prohance) 20 ml IV . DIRECTED [facility] Last Admin: 08/02/17 16:00 Dose: 15 ml Hydralazine HCl (Apresoline) 5 mg IVPUSH ONETIME STA Stop: 08/02/17 13:37 Last Admin: 08/02/17 13:50 Dose: 5 mg Hydralazine HCl (Apresoline) 10 mg IVPUSH ONETIME ONE Stop: 08/02/17 14:37 Last Admin: 08/02/17 16:09 Dose: Not Given Nitroglycerin/Dextrose (Nitroglycerin 25 Mg/D5w 250 Ml) Confirm Administered Dose 25 mg in 250 mls @ as directed .ROUTE .STK-MED ONE Stop: 08/02/17 14:29 Last Admin: 08/02/17 14:45 Dose: Not Given Nitroglycerin/Dextrose (Nitroglycerin 25 Mg/D5w 250 Ml) 25 mg in 250 mls @ 3 mls/hr IV TITRATE CHARLIE; 5 MCG/MIN PRN Reason: Protocol Last Titration: 08/03/17 08:22 Dose: 0 mcg/min, 0 mls/hr Sodium Chloride (Normal Saline) 1,000 mls @ 0 mls/hr IV ASDIRECTED CHARLIE PRN Reason: KVO Stop: 08/06/17 16:57 Last Admin: 08/02/17 16:53 Dose: 30 mls/hr Labetalol HCl (Normodyne) 20 mg IVPUSH Q4H [facility]LIE PRN Reason: Protocol Last Admin: 08/04/17 04:57 Dose: 20 mg Metoprolol Succinate (Toprol Xl) 25 mg PO DAILY [facility] Prednisone (Prednisone) 40 mg PO WITHBREAKFAST [facility] Valacyclovir HCl (Valtrex) 1,000 mg PO TID [facility] Stop: 08/09/17 21:01 Last Admin: 08/02/17 21:00 Dose: 1,000 mg - Exam Quality Assessment: No: Supplemental Oxygen General: Alert, Oriented, Cooperative HEENT: Pupils Equal, Other (patched left eye) Neck: Supple Lungs: Clear to Auscultation Cardiovascular: Regular Rate Skin: Warm, Dry, Intact Neurological: Other (Facial nerve palsy) - Problem List & Annotations (1) Hypertensive emergency SNOMED Code(s): 773238709988584 Code(s): I16.1 - HYPERTENSIVE EMERGENCY Status: Acute Current Visit: Yes (2) Lujan's palsy SNOMED Code(s): 458317540 Code(s): G51.0 - LUJAN'S PALSY Status: Acute Current Visit: Yes (3) Bacteriuria SNOMED Code(s): 21152619 Code(s): R82.71 - BACTERIURIA Status: Acute Current Visit: Yes (4) Chronic anticoagulation SNOMED Code(s): 289004600 Code(s): Z79.01 - SNF (CURRENT) USE OF ANTICOAGULANTS Status: Acute Current Visit: Yes Annotation/Comment:: Continue anticoagulation, per pharmacy. (5) Afib, Atrial fibrillation SNOMED Code(s): 73819821 Code(s): I48.91 - UNSPECIFIED ATRIAL FIBRILLATION Status: Acute Priority : Medium Current Visit: No (6) CKD (chronic kidney disease) SNOMED Code(s): 404548288 Code(s): N18.9 - CHRONIC KIDNEY DISEASE, UNSPECIFIED Status: Acute Current Visit: Yes Qualifiers: Chronic kidney disease stage: stage 1 Qualified Code(s): N18.1 - Chronic kidney disease, stage 1 - Problem List Review Problem List Initiated/Reviewed/Updated: Yes - My Orders Last 24 Hours: My Active Orders 08/03/17 09:00 amLODIPine [Norvasc] 10 mg PO DAILY valACYclovir [Valtrex] 1,000 mg PO BID 08/03/17 19:30 Polyethylene Glycol 3350 [MiraLAX] 17 gm PO DAILY 08/03/17 21:00 Potassium Chloride [Klor-Con 8] 16 meq PO BID 08/03/17 22:30 POC Glucose [Blood Glucose Check, Bedside] [RC] ONETIME 08/04/17 08:39 Patient Status Manage Transfer [TRANSFER] Routine 08/04/17 08:45 Metoprolol Tartrate [Lopressor] 100 mg PO Q12HR 08/05/17 05:11 BASIC METABOLIC PANEL,BMP [CHEM] AM GLYCOSYLATED HEMOGLOBIN,HGBA1C [CHEM] AM - Plan Plan:: Criselda is doing much better than yesterday. I will transfer out of the ICU continue IV antihypertensives. I will start metoprolol 100 mg twice a day in addition to the Diovan and amlodipine. This will room to increase the Diovan to 360. We'll continue prednisone and Valtrex ambulate today with a hope of discharge tomorrow.
[2017-08-04] MEDS: Potassium Chloride 8 MEQ Tab.ER PO SCH ×2 (10:20→21:01)
[2017-08-04] MEDS: Metoprolol Tartrate 100 MG Tab PO SCH ×2 (10:20→21:01)
[2017-08-04] MEDS: Valsartan 160 MG Tab PO SCH (10:20)
[2017-08-04] MEDS: amLODIPine 10 MG Tab PO SCH (10:21)
[2017-08-04] MEDS: Furosemide 80 MG Tab PO SCH (10:21)
[2017-08-04] MEDS: valACYclovir 1,000 MG Tab PO SCH ×2 (10:21→21:01)
[2017-08-04] MEDS: Polyethylene Glycol 3350 Powder 17 GM Packet PO SCH (10:30)
--- NOTE | 2017-08-05 08:41 | PCM.PN ---
- General Info Date of Service: 08/05/17 Subjective Update: Criselda is hard of hearing. Has a droopy left side but improved. Otherwise no headache or chest pain or shortness of breath. She has no new complaints. Ambulation is good she eats well. And the nurse feel confident she could probably go home tomorrow. The blood pressure is slightly improved. Her heart rate is in the 40s and 50s. - Review of Systems Pulmonary: Reports: No Symptoms Cardiovascular: Reports: No Symptoms Gastrointestinal: Reports: No Symptoms Genitourinary: Reports: No Symptoms - Patient Data Vitals - Most Recent: Last Vital Signs Temp 98 F 08/04/17 20:00 Pulse 54 L 08/05/17 00:00 Resp 16 08/05/17 00:00 BP 143/77 H 08/05/17 00:00 Pulse Ox 95 08/05/17 00:00 Weight - Most Recent: 70.76 kg I&O - Last 24 Hours: Intake & Output 08/04/17 08/05/17 08/05/17 22:59 06:59 14:59 Intake Total 240 0 Output Total 0 Balance 240 0 Lab Results Last 24 Hours: Laboratory Results - last 24 hr 08/05/17 08/05/17 08/05/17 Range/Units 06:28 06:28 06:28 PT 43.6 H* (8.7-11.1) INR 4.20 H* (0.89-1.13) Sodium 144 (135-145) mmol/L Potassium 4.0 (3.5-5.3) mmol/L Chloride 107 (100-110) mmol/L Carbon Dioxide 30 (21-32) mmol/L BUN 42 H D (7-18) mg/dL Creatinine 1.4 H (0.55-1.02) mg/dL Est Cr Clr Drug Dosing 22.81 mL/min Estimated GFR (MDRD) 36 L (>60) BUN/Creatinine Ratio 30.0 H (9-20) Glucose 110 (80-116) mg/dL Hemoglobin A1c 6.2 (4.5-6.2) % Calcium 9.2 (8.6-10.2) mg/dL Med Orders - Current: Current Medications Acetaminophen (Tylenol) 650 mg PO Q4H PRN PRN Reason: Pain (Mild 1-3)/fever Amlodipine Besylate (Norvasc) 10 mg PO DAILY [facility] Last Admin: 08/04/17 10:21 Dose: 10 mg Artificial Tears (Refresh Tears 0.5%) 0 ml EYELF Q1H PRN PRN Reason: LID LAG Last Admin: 08/04/17 17:10 Dose: 1 drop Docusate Sodium (Colace) 100 mg PO BID PRN PRN Reason: Constipation Last Admin: 08/03/17 14:32 Dose: 100 mg Furosemide (Lasix) 80 mg PO DAILY [facility] Last Admin: 08/04/17 10:21 Dose: 80 mg Metformin HCl (Glucophage) 250 mg PO WITHBREAKFAST [facility] Last Admin: 08/04/17 08:26 Dose: 250 mg Polyethylene Glycol (Miralax) 17 gm PO DAILY [facility] Last Admin: 08/04/17 10:30 Dose: 17 gm Potassium Chloride (Klor-Con 8) 16 meq PO BID [facility] Last Admin: 08/04/17 21:01 Dose: 16 meq Prednisone (Prednisone) 60 mg PO WITHBREAKFAST [facility] Last Admin: 08/04/17 08:27 Dose: 60 mg Sodium Chloride (Saline Flush) 10 ml FLUSH ASDIRECTED PRN PRN Reason: Keep Vein Open Last Admin: 08/03/17 13:03 Dose: 10 ml Valacyclovir HCl (Valtrex) 1,000 mg PO BID [facility] Stop: 08/09/17 09:01 Last Admin: 08/04/17 21:01 Dose: 1,000 mg Valsartan (Diovan) 160 mg PO DAILY [facility] Last Admin: 08/04/17 10:20 Dose: 160 mg Warfarin Sodium (Coumadin) 3 mg PO 1600 [facility] Last Admin: 08/03/17 17:23 Dose: 3 mg Warfarin Sodium (Coumadin Sliding Scale) 1 each PO ASDIRECTED [facility] Discontinued Medications Artificial Tears (Refresh Plus 0.5%) 1 each EYELF ASDIRECTED PRN PRN Reason: lid lag Last Admin: 08/02/17 21:07 Dose: 1 drop Digoxin (Lanoxin) 125 mcg PO DAILY [facility] Digoxin (Lanoxin) 62.5 mcg PO DAILY [facility] Enalapril Maleate (Vasotec) 20 mg PO DAILY [facility] Gadoteridol (Prohance) 20 ml IV . DIRECTED [facility] Last Admin: 08/02/17 16:00 Dose: 15 ml Hydralazine HCl (Apresoline) 5 mg IVPUSH ONETIME STA Stop: 08/02/17 13:37 Last Admin: 08/02/17 13:50 Dose: 5 mg Hydralazine HCl (Apresoline) 10 mg IVPUSH ONETIME ONE Stop: 08/02/17 14:37 Last Admin: 08/02/17 16:09 Dose: Not Given Nitroglycerin/Dextrose (Nitroglycerin 25 Mg/D5w 250 Ml) Confirm Administered Dose 25 mg in 250 mls @ as directed .ROUTE .STK-MED ONE Stop: 08/02/17 14:29 Last Admin: 08/02/17 14:45 Dose: Not Given Nitroglycerin/Dextrose (Nitroglycerin 25 Mg/D5w 250 Ml) 25 mg in 250 mls @ 3 mls/hr IV TITRATE CHARLIE; 5 MCG/MIN PRN Reason: Protocol Last Titration: 08/03/17 08:22 Dose: 0 mcg/min, 0 mls/hr Sodium Chloride (Normal Saline) 1,000 mls @ 0 mls/hr IV ASDIRECTED [facility] PRN Reason: KVO Stop: 08/06/17 16:57 Last Admin: 08/02/17 16:53 Dose: 30 mls/hr Labetalol HCl (Normodyne) 20 mg IVPUSH Q4H [facility] PRN Reason: Protocol Last Admin: 08/04/17 11:28 Dose: Not Given Metoprolol Succinate (Toprol Xl) 25 mg PO DAILY [facility] Metoprolol Tartrate (Lopressor) 100 mg PO Q12H [facility] Last Admin: 08/04/17 21:01 Dose: 100 mg Prednisone (Prednisone) 40 mg PO WITHBREAKFAST [facility] Valacyclovir HCl (Valtrex) 1,000 mg PO TID [facility] Stop: 08/09/17 21:01 Last Admin: 08/02/17 21:00 Dose: 1,000 mg - Exam General: Alert, Oriented HEENT: Pupils Equal, Pupils Reactive, EOMI, Mucous Membr. Moist/[place] Neck: Supple Lungs: Clear to Auscultation, Normal Respiratory Effort Cardiovascular: Bradycardia Wound/Incisions: Healing Well Neurological: Other (Facial never palsy) Psy/Mental Status: Alert, Normal Affect, Normal Mood - Problem List & Annotations (1) Hypertensive emergency SNOMED Code(s): 722115558515650 Code(s): I16.1 - HYPERTENSIVE EMERGENCY Status: Acute Current Visit: Yes (2) Lujan's palsy SNOMED Code(s): 910774563 Code(s): G51.0 - LUJAN'S PALSY Status: Acute Current Visit: Yes (3) Bacteriuria SNOMED Code(s): 09354403 Code(s): R82.71 - BACTERIURIA Status: Acute Current Visit: Yes (4) Chronic anticoagulation SNOMED Code(s): 540288011 Code(s): Z79.01 - [employer] (CURRENT) USE OF ANTICOAGULANTS Status: Acute Current Visit: Yes Annotation/Comment:: Continue anticoagulation, per pharmacy. (5) Afib, Atrial fibrillation SNOMED Code(s): 93483744 Code(s): I48.91 - UNSPECIFIED ATRIAL FIBRILLATION Status: Acute Priority : Medium Current Visit: No (6) CKD (chronic kidney disease) SNOMED Code(s): 806020932 Code(s): N18.9 - CHRONIC KIDNEY DISEASE, UNSPECIFIED Status: Acute Current Visit: Yes Qualifiers: Chronic kidney disease stage: stage 1 Qualified Code(s): N18.1 - Chronic kidney disease, stage 1 - Problem List Review Problem List Initiated/Reviewed/Updated: Yes - My Orders Last 24 Hours: My Active Orders 08/05/17 08:45 Metoprolol Tartrate [Lopressor] 50 mg PO Q12HR 08/06/17 06:00 INR,PT,PROTHROMBIN TIME [COAG] Routine - Plan Plan:: Criselda is doing much better than yesterday. I urine grew Staphylococcus but she has no symptoms. no need for Abx.Her blood pressures been stable, I will decrease metoprolol to twice a day. My plan is to discharge her tomorrow.
[2017-08-05] MEDS: metFORMIN 500 MG Tab PO SCH (09:18)
[2017-08-05] MEDS: predniSONE 20 MG Tab PO SCH (09:18)
[2017-08-05] MEDS: Polyethylene Glycol 3350 Powder 17 GM Packet PO SCH (09:19)
[2017-08-05] MEDS: Potassium Chloride 8 MEQ Tab.ER PO SCH ×2 (09:19→20:20)
[2017-08-05] MEDS: Furosemide 80 MG Tab PO SCH (09:19)
[2017-08-05] MEDS: Valsartan 160 MG Tab PO SCH (09:19)
[2017-08-05] MEDS: valACYclovir 1,000 MG Tab PO SCH ×2 (09:20→20:20)
[2017-08-05] MEDS: amLODIPine 10 MG Tab PO SCH (09:20)
[2017-08-05] MEDS: Carboxymethylcellulose Sodium 0.5% Ophth Soln 15 ML Bottle EYELF PRN ×2 (09:21→20:20)
[2017-08-05] MEDS ORDERED: Metoprolol Tartrate 50 MG Tab PO ONE (09:44)
[2017-08-05] MEDS: Metoprolol Tartrate 50 MG Tab PO SCH (20:23)
--- NOTE | 2017-08-06 09:13 | PCM.PN ---
- General Info Date of Service: 08/06/17 Subjective Update: Criselda is hard of hearing. Has a droopy left side but improved. Otherwise no headache or chest pain or shortness of breath. She has no new complaints. Ambulation is good she eats well. And the nurse feel confident she could probably go home today. The blood pressure is slightly improved. Her heart rate is in the 40s and 50s.Asymptomatic - Review of Systems General: Reports: No Symptoms HEENT: Reports: No Symptoms Pulmonary: Reports: No Symptoms Cardiovascular: Reports: No Symptoms - Patient Data Vitals - Most Recent: Last Vital Signs Temp 97.5 F 08/06/17 03:05 Pulse 48 L 08/06/17 03:05 Resp 18 08/06/17 03:05 BP 156/79 H 08/06/17 03:05 Pulse Ox 95 08/06/17 03:05 Weight - Most Recent: 70.76 kg Lab Results Last 24 Hours: Laboratory Results - last 24 hr 08/06/17 Range/Units 06:42 PT 34.0 H (8.7-11.1) INR 3.29 H (0.89-1.13) Med Orders - Current: Current Medications Acetaminophen (Tylenol) 650 mg PO Q4H PRN PRN Reason: Pain (Mild 1-3)/fever Amlodipine Besylate (Norvasc) 10 mg PO DAILY [facility] Last Admin: 08/05/17 09:20 Dose: 10 mg Artificial Tears (Refresh Tears 0.5%) 0 ml EYELF Q1H PRN PRN Reason: LID LAG Last Admin: 08/05/17 20:20 Dose: 1 drop Docusate Sodium (Colace) 100 mg PO BID PRN PRN Reason: Constipation Last Admin: 08/03/17 14:32 Dose: 100 mg Furosemide (Lasix) 80 mg PO DAILY [facility] Last Admin: 08/05/17 09:19 Dose: 80 mg Metformin HCl (Glucophage) 250 mg PO WITHBREAKFAST [facility] Last Admin: 08/05/17 09:18 Dose: 250 mg Metoprolol Tartrate (Lopressor) 50 mg PO BID [facility] Last Admin: 08/05/17 20:23 Dose: 50 mg Polyethylene Glycol (Miralax) 17 gm PO DAILY [facility] Last Admin: 08/05/17 09:19 Dose: 17 gm Potassium Chloride (Klor-Con 8) 16 meq PO BID [facility] Last Admin: 08/05/17 20:20 Dose: 16 meq Prednisone (Prednisone) 60 mg PO WITHBREAKFAST [facility] Last Admin: 08/05/17 09:18 Dose: 60 mg Sodium Chloride (Saline Flush) 10 ml FLUSH ASDIRECTED PRN PRN Reason: Keep Vein Open Last Admin: 08/03/17 13:03 Dose: 10 ml Valacyclovir HCl (Valtrex) 1,000 mg PO BID [facility] Stop: 08/09/17 09:01 Last Admin: 08/05/17 20:20 Dose: 1,000 mg Valsartan (Diovan) 160 mg PO DAILY [facility] Last Admin: 08/05/17 09:19 Dose: 160 mg Warfarin Sodium (Coumadin) 3 mg PO 1600 [facility] Last Admin: 08/03/17 17:23 Dose: 3 mg Warfarin Sodium (Coumadin Sliding Scale) 1 each PO ASDIRECTED CHARLIE Discontinued Medications Artificial Tears (Refresh Plus 0.5%) 1 each EYELF ASDIRECTED PRN PRN Reason: lid lag Last Admin: 08/02/17 21:07 Dose: 1 drop Digoxin (Lanoxin) 125 mcg PO DAILY [facility] Digoxin (Lanoxin) 62.5 mcg PO DAILY [facility] Enalapril Maleate (Vasotec) 20 mg PO DAILY [facility] Gadoteridol (Prohance) 20 ml IV . DIRECTED [facility] Last Admin: 08/02/17 16:00 Dose: 15 ml Hydralazine HCl (Apresoline) 5 mg IVPUSH ONETIME STA Stop: 08/02/17 13:37 Last Admin: 08/02/17 13:50 Dose: 5 mg Hydralazine HCl (Apresoline) 10 mg IVPUSH ONETIME ONE Stop: 08/02/17 14:37 Last Admin: 08/02/17 16:09 Dose: Not Given Nitroglycerin/Dextrose (Nitroglycerin 25 Mg/D5w 250 Ml) Confirm Administered Dose 25 mg in 250 mls @ as directed .ROUTE .STK-MED ONE Stop: 08/02/17 14:29 Last Admin: 08/02/17 14:45 Dose: Not Given Nitroglycerin/Dextrose (Nitroglycerin 25 Mg/D5w 250 Ml) 25 mg in 250 mls @ 3 mls/hr IV TITRATE CHARLIE; 5 MCG/MIN PRN Reason: Protocol Last Titration: 08/03/17 08:22 Dose: 0 mcg/min, 0 mls/hr Sodium Chloride (Normal Saline) 1,000 mls @ 0 mls/hr IV ASDIRECTED CHARLIE PRN Reason: KVO Stop: 08/06/17 16:57 Last Admin: 08/02/17 16:53 Dose: 30 mls/hr Labetalol HCl (Normodyne) 20 mg IVPUSH Q4H [facility] PRN Reason: Protocol Last Admin: 08/04/17 11:28 Dose: Not Given Metoprolol Succinate (Toprol Xl) 25 mg PO DAILY [facility] Metoprolol Tartrate (Lopressor) 100 mg PO Q12H [facility] Last Admin: 08/04/17 21:01 Dose: 100 mg Metoprolol Tartrate (Lopressor) 50 mg PO ONETIME ONE Stop: 08/05/17 09:45 Last Admin: 08/05/17 10:04 Dose: 50 mg Prednisone (Prednisone) 40 mg PO WITHBREAKFAST [facility] Valacyclovir HCl (Valtrex) 1,000 mg PO TID [facility] Stop: 08/09/17 21:01 Last Admin: 08/02/17 21:00 Dose: 1,000 mg - Exam Quality Assessment: No: Supplemental Oxygen General: Alert, Oriented HEENT: Pupils Equal, Pupils Reactive, EOMI, Mucous Membr. Moist/[place], Other (No wax inears) Neck: Supple Lungs: Clear to Auscultation, Normal Respiratory Effort Cardiovascular: Regular Rate, Regular Rhythm Neurological: No New Focal Deficit Psy/Mental Status: Alert, Normal Affect - Problem List & Annotations (1) Hypertensive emergency SNOMED Code(s): 132753556464217 Code(s): I16.1 - HYPERTENSIVE EMERGENCY Status: Acute Current Visit: Yes (2) Lujan's palsy SNOMED Code(s): 109644700 Code(s): G51.0 - LUJAN'S PALSY Status: Acute Current Visit: Yes (3) Bacteriuria SNOMED Code(s): 44661556 Code(s): R82.71 - BACTERIURIA Status: Acute Current Visit: Yes (4) Chronic anticoagulation SNOMED Code(s): 344748544 Code(s): Z79.01 - SNF (CURRENT) USE OF ANTICOAGULANTS Status: Acute Current Visit: Yes Annotation/Comment:: Continue anticoagulation, per pharmacy. (5) Afib, Atrial fibrillation SNOMED Code(s): 38971687 Code(s): I48.91 - UNSPECIFIED ATRIAL FIBRILLATION Status: Acute Priority : Medium Current Visit: No (6) CKD (chronic kidney disease) SNOMED Code(s): 530592916 Code(s): N18.9 - CHRONIC KIDNEY DISEASE, UNSPECIFIED Status: Acute Current Visit: Yes Qualifiers: Chronic kidney disease stage: stage 1 Qualified Code(s): N18.1 - Chronic kidney disease, stage 1 - Problem List Review Problem List Initiated/Reviewed/Updated: Yes - My Orders Last 24 Hours: My Active Orders 08/05/17 21:00 Metoprolol Tartrate [Lopressor] 50 mg PO BID - Plan Plan:: Criselda is doing much better than yesterday. I urine grew Staphylococcus but she has no symptoms. no need for Abx.Her blood pressures been stable, I will discharge her today on current meds- metoprolol to twice a day. My plan is to discharge her home today with Home Health.
[2017-08-06] MEDS: predniSONE 20 MG Tab PO SCH (09:17)
[2017-08-06] MEDS: amLODIPine 10 MG Tab PO SCH (09:18)
[2017-08-06] MEDS: metFORMIN 500 MG Tab PO SCH (09:18)
[2017-08-06] MEDS: valACYclovir 1,000 MG Tab PO SCH (09:20)
[2017-08-06] MEDS: Potassium Chloride 8 MEQ Tab.ER PO SCH (09:20)
[2017-08-06] MEDS: Metoprolol Tartrate 50 MG Tab PO SCH (09:20)
[2017-08-06] MEDS: Furosemide 80 MG Tab PO SCH (09:21)
[2017-08-06] MEDS: Valsartan 160 MG Tab PO SCH (09:21)
[2017-08-06] MEDS: Polyethylene Glycol 3350 Powder 17 GM Packet PO SCH (10:37)
[2017-08-06 12:42] VITALS: BP 111/73
--- NOTE | 2017-08-07 07:35 | DISCH ---
DISCHARGE DATE: 08/06/2017 REASON FOR ADMISSION: 1. Facial droop. 2. Hypertensive emergency. 3. Atrial fibrillation. 4. Hearing loss. 5. Type 2 diabetes. 6. History of congestive heart failure. 7. Osteoarthritis. DISCHARGE DIAGNOSES: 1. Molina's palsy. 2. Hypertensive emergency. 3. Type 2 diabetes. 4. Chronic atrial fibrillation. 5. Remote history of pulmonary embolism. 6. Osteoarthritis. PROCEDURES: Except bedside swallow study. She also had an MRI and MRA. BRIEF HISTORY: Criselda is an 87-year-old female who presented with weakness of the left eye and muscles with droop and upon admission to the ER, was found to have very high blood pressure of [address] was negative and so was the MRI. She has a history of atrial fibrillation and CHF. She was treated with nitroglycerin drip with no improvement and then changed to IV labetalol, which helped bring down the blood pressure. I discontinued losartan and digoxin. In its place, I started amlodipine and metoprolol. Her blood pressure came down to the 150s and 160s systolic. Blood sugars were well controlled. INR was within reference range. She was discharged on the with home health to help with medications and physical occupation therapy if needed. DISCHARGE MEDICATIONS: 1. Metoprolol 50 mg b.i.d. 2. Losartan 160 mg a day. 3. Lasix 80 mg a day. 4. Coumadin as previously prescribed and directed. 5. Potassium chloride 16 mEq a day. 6. Amlodipine 10 mg a day. 7. Docusate sodium p.r.n. 8. Acetaminophen p.r.n. 9. Valtrex 1000 mg b.i.d. for 2 more days to finish 7 days. 10.Prednisone was discontinued after 5 days. FOLLOW UP: Dr. Phipps at the end of the week with an INR. Please note that I spent more than 35 minutes in the discharge of the patient. /[id number] CHUCK/[place]
== END 2017-08-06 13:10 | disposition home health service (06) | DRG 305 ==
LOC: FB.ED 13:01 → FB.ICU 14:54 → FB.MS 08-04 08:39
PROVIDERS: ADMIT Family Medicine; ATTEND Family Medicine
DX: I16.1 Hypertensive emergency (principal); G51.0 Bell's palsy; I13.0 Hypertensive heart and chronic kidney disease with heart failure and stage 1 through stage 4 chronic kidney disease, or unspecified chronic kidney disease; I48.2 Chronic atrial fibrillation; Z79.84 Long term (current) use of oral hypoglycemic drugs; M54.2 Cervicalgia; I50.9 Heart failure, unspecified; R29.810 Facial weakness; E11.22 Type 2 diabetes mellitus with diabetic chronic kidney disease; N18.1 Chronic kidney disease, stage 1; R82.71 Bacteriuria; B95.4 Other streptococcus as the cause of diseases classified elsewhere; H02.539 Eyelid retraction unspecified eye, unspecified lid; Z86.711 Personal history of pulmonary embolism; M19.90 Unspecified osteoarthritis, unspecified site; H91.90 Unspecified hearing loss, unspecified ear; H54.7 Unspecified visual loss; Z66 Do not resuscitate; Z79.01 Long term (current) use of anticoagulants; Z88.2 Allergy status to sulfonamides; Z79.899 Other long term (current) drug therapy; Z51.81 Encounter for therapeutic drug level monitoring
CPT/HCPCS: 36415; 51701; 70450; 70549; 70553; 80048; 80162; 81001; 82550; 82962; 83036; 84484; 85025; 85610; 87086; 87088; 92526-GN; 93005; 96374; 97161-GP; 97165-GO; 99285; A9270-GY; J0360; J7040; J7050